=== PATIENT | female | born 1990 | race African-American/Black ===

== ENCOUNTER 2017-04-26 20:04 | Emergency (ER) | payer MEDICAID, SELFPAY | END 2017-04-26 20:48 | disposition home or self-care (01) | LOC: MADERS 20:04 | DX: L02.411 Cutaneous abscess of right axilla (principal); I11.0 Hypertensive heart disease with heart failure; I50.9 Heart failure, unspecified; F17.210 Nicotine dependence, cigarettes, uncomplicated | CPT/HCPCS: 99283 ==

== ENCOUNTER 2017-10-05 14:36 | Emergency (ER) | payer SELFPAY ==
[2017-10-05] MEDS ORDERED: Benzonatate 100 MG CAP ONE (15:25)
--- NOTE | 2017-10-05 15:54 | RAD ---
PORTABLE CHEST 1 VIEW: Date: 10/05/17 Time: 1522 hours HISTORY: Cough. FINDINGS: The heart size appears prominent, likely due to magnification. The lungs are well expanded without f ocal areas of consolidation, pneumothorax, analy pulmonary edema, or pleural effusions. IMPRESSION: No acute process. POS: OFF
== END 2017-10-05 16:01 | disposition home or self-care (01) ==
LOC: MADERS 14:36
DX: J20.9 Acute bronchitis, unspecified (principal); I10 Essential (primary) hypertension; F17.210 Nicotine dependence, cigarettes, uncomplicated
CPT/HCPCS: 71010; J7620